=== PATIENT | female | born 1955 | race Caucasian/White ===

== ENCOUNTER → 2020-01-29 12:00 | Outpatient (CLI) | payer MEDICARE, BC, SELFPAY ==
[2015-11-10 11:52] VITALS: BMI 24.7
== END ==
PROVIDERS: PCP Family Medicine; Referring Provider Specialist; Visit Provider Specialist
DX: Z91.038 Other insect allergy status (principal); M19.072 Primary osteoarthritis, left ankle and foot
CPT/HCPCS: 36415; 97035; 97140

== ENCOUNTER 2020-02-15 11:00 | Outpatient (RCR) | payer MEDICARE, BC, SELFPAY ==
--- NOTE | 2020-01-02 13:00 | HP.PTEVAL_ITS ---
Patient's Visit Information PARI CARBAJAL is a 64 year old F referred to Physical Therapy by Dr. Fabiano Pena MD with a diagnosis of OA L ANKLE AND FOOT. Date of Evaluation: 01/02/20 Physical Therapist: Justine Rico PT, Cert MDT - Visit Plan Frequency: 2-3x /Week Duration: 4-6 Weeks Plan: TRY US NEXT VISIT. STM WITH MANUAL ROM AND STRETCHING. LEFT LE ROM, STRETCHING AND STRENGTHENING WITH WRITTEN HEP. MODALITIES NEEDED. - Subjective Work/Leisure: RETIRED. [employer]. Disability: NO. Present symptoms: PAIN ON THE TOP OF THE FOOT AND THE OUTSIDE OF THE ANKLE. NO NUMBNESS OR TINGLING. Present since: OCTOBER 2016 (FX'D CALCANEUS). Pain Scale: WORST 6/10, LEAST 1/10. Currently: 06/08. Commenced as a result of: FX'D LEFT ANKLE WALKING DOG - SLID ON HILL WHEN DOG PULLED HER AND SLID INTO BRICK WALL. Symptoms at onset: PAIN AND SWELLING. Worse: DAILY LIVING, GOING UP AND DOWN STEPS (LAUNDRY IS IN THE BASEMENT), WALKING THE DOGS. Better: SITTING DOWN OR LYING DOWN - BEING OFF OF IT. Disturbed sleep: NO. Previous history/Previous treatment: BONE STIMULATOR IN THE PAST, SOME EXERCISES, ONE CORTISONE SHOT, TRIED PILLS BUT I DON'T LIKE BEING IN [place]. NO SURGERY. STATES SHE WAS STUCK IN A W/C DUE TO BONE BEING SHATTERED LIKE AN EGG SHELL FOR 9 MONTHS AND IT WAS HORRIBLE. STATES SHE DOESN'T KNOW IF IT HEALED RIGHT. STATES SURGERY WAS NOT SUGGESTED INITIALLY BUT ABOUT 18 MONTHS AFTER INJURY IT WAS RECOMMENDED DUE TO HER SUBTALER JOINT BEING MESSED UP. PATIENT IS ADAMIT THAT SHE DOES NOT WANT SURGERY. DR. PENA HAS ORDERED AN ANKLE BRACE AND AWAITING INSURANCE APPROVAL. PATIENT REPORTS SHE DID NOT HAVE A GOOD EXPERIENCE WITH PHYSICAL THERPAY AT [facility] BECAUSE WHEN SHE WANTED TO STOP THEY PUSHED HER TO CONTINUE AND SHE WAS IN MORE PAIN AFTER. PATIENT REPORTS THEY ARE ALSO IN THE PROCESS OF LOOKING AT USING A BONE STIMULATOR AGAIN WITH DIFFERENT CALIBRATION. USE TO COME TO [facility] TO EXERCISE 3 DAYS A WEEK AND WALK THE DOG LONGER AND SHE WANTS TO BE ABLE TO GET BACK TO THESE THINGS AND JUST GET BACK TO A BETTER QUALITY OF LIFE. Gait: DISTANCE LIMITED DUE TO PAIN BUT TRIES TO PUSH THROUGH. STATES HER LEFT ANKLE TENDS TO ROLL AND SHE HASN'T FALLEN BUT SHE DOESN'T FEEL LIKE SHE CAN REALLY TRUST IT. Accidents: BROKE LEFT ANKLE ROLLER SKATING IN [place]. Imaging: RECENT LEFT FOOT AND ANKLE X-RAYS A FEW WEEKS AGO SHOWING ARTHRIITS BUT NO RECENT MRI. PMH: HIGH BLOOD PRESSURE. Recent major surgery: UNREMARKABLE. OTHER; PATIENT STATES SHE IS GRASPING FOR ANYTHING THAT CAN GIVE HER SOME RELIEF OR NORMALICY OTHER THAN SURGERY RIGH NOW. - Objective THIS PATIENT AMBULATES INDEP'LY INTO PT WITHOUT ANY ASSISTIVE DEVICES LIMPING ON HER LLE. SHE HAS INCREASED LEFT ANKLE CIRCOMFERENCE COMPARED TO RIGHT AND DECREASED CALF CIRCUMFERENCE ON LEFT COMPARED TO RIGHT. SHE HAS GOOD IRMA LE STRENGTH WITH MMT'ING EXCEPT LEFT ANKLE AND POOR CORE STRENGTH. LEFT ANKLE ROM AND STRENGTH DEFICITS ALL PLANES. LEFT ANKLE DORSIFLEXION IS +7 DEG DF TO 27 DEG PF AND SHE HAS MAJOR LEFT ANKLE INVERSION AND EVERSION ROM LIMITATION ACTIVELY AND PASSIVELY. SHE IS ABLE TO INDEP'LY SLS ON HER LLE WITH UE ASSIST AND ALSO HEEL RAISE WITH BOTH FEET ON THE FLOOR AND UE ASSIST BUT BOTH OF THESE TESTS ARE PAINFUL. PATIENT REPORTS SHE DOES HEEL RAISES AT HOME DESPITE THE PAIN BECAUSE SHE THINKS SHE NEEDS IT. PATIENT WITH C/O INCREASED PAIN EVEN AFTER AROM TESTING OF LEFT ANKLE TODAY. AQUATIC THERAPY WAS DISCUSSED AND PATIENT REPORTS HER DOCTOR ALSO RECOMMENDED IT. SHE REPORTS SHE HAD A BAD EXPERIENCE WITH WATER AND HAS NOT BEEN BACK IN THE [place]. STATES SHE WILL CONSIDER IT IN THE FUTURE BUT WANTS TO TRY [place]. - Goals Goal 1:: INDEP AND SAFE GAIT ON ALL SURFACES WITH DECREASED PAIN AND DECREASED DEVIATIONS. Goal Time Frame: 4-6 Weeks Goal 2:: IMPROVE ADL, STANDING AND WALKING FUNCITON Goal Time Frame: 4-6 Weeks Goal 3:: PATIENT WILL BE INDEP WITH A HEP FOR CONTINUED IMPROVEMENT ONCE FORMAL PHYSICAL THERAPY CONCLUDES. Goal Time Frame: 4-6 Weeks - Anticipated Interventions Patient/Client Instruction: Educate patient on: Condition, Plan of Care, Risk Factors, Benefits of Fitness Program For the Purpose of:: To improve self management Therapeutic Exercise to Include: Strength training, Balance training, Flexibilty training, Gait and locomotor training, Neuromotor development, In an aquatic setting For the Purpose of:: To decrease pain, To increase ROM, To improve muscle performance and motor function, To increase tolerance to activity/condition/position, To improve ability of physical actions for home/community/work/leisure, To improve gait and locomotor functions Manual Therapy Techniques to Include: Mobilization, Passive ROM, Soft tissue mobilization For the Purpose of:: To decrease pain, To increase ROM, To improve nutrient delivery to tissue Cryotherapy (ice pack, ice massage): Yes Thermo therapy (hot pack): Yes Ultrasound (thermal/non thermal): Yes For the Purpose of:: To decrease pain, To decrease swelling/inflammation, To improve nutrient delivery to tissue Thank you for the opportunity to evaluate your patient. For Medicare and Medicare HMO plans, please review the plan of care and approve it. It will need to be FAXED BACK to us at [phone] for Medicare purposes. For Medicare only, by signing this I certify the plan of care. Please let me know if there are questions or concerns regarding this plan of care. Physician Signature: Date:
--- NOTE | 2020-01-25 14:40 | HP.PTREVAL ---
Dr. Fabiano Bullard MD, It has been my pleasure to treat PARI CARBAJAL over the last 9 visits for OA L ANKLE AND FOOT. Please see the progress note below for an update on the physical therapy plan of care! Subjective: PATIENT REPORTS HER FOOT ISN'T PAINFUL IT WAS BEFORE SHE STARTED PT. SHE STATES SHE FEELS LIKE THE TREATMENTS ARE HELPING A LOT. Objective/Function: THIS PATIENT AMBULATES INDEP'LY INTO PT WITHOUT ANY ASSISTIVE DEVICES LIMPING ON HER LLE. SHE HAS INCREASED LEFT ANKLE CIRCOMFERENCE COMPARED TO RIGHT AND DECREASED CALF CIRCUMFERENCE ON LEFT COMPARED TO RIGHT. SHE HAS GOOD IRMA LE STRENGTH WITH MMT'ING EXCEPT LEFT ANKLE AND POOR CORE STRENGTH. LEFT ANKLE ROM AND STRENGTH DEFICITS ALL PLANES. LEFT ANKLE DORSIFLEXION IS +8 DEG DF TO 38 DEG PF AND SHE HAS MAJOR LEFT ANKLE INVERSION AND EVERSION ROM LIMITATION ACTIVELY AND PASSIVELY. SHE IS ABLE TO INDEP'LY SLS ON HER LLE WITH UE ASSIST AND ALSO HEEL RAISE WITH BOTH FEET ON THE FLOOR AND UE ASSIST BUT BOTH OF THESE TESTS ARE PAINFUL. PATIENT WITHOUT C/O INCREASED PAIN AFTER AROM TESTING OF LEFT ANKLE TODAY. AQUATIC THERAPY WAS DISCUSSED AGAIN AND PATIENT REPORTS HER DOCTOR ALSO RECOMMENDED IT BUT SHE STILL DOES NOT WANT TO DO IT. Plan Plan: CONTINUE E-STIM, US, STM/JT MOBILIZATION WITH MANUAL ROM AND STRETCHING. LEFT LE ROM, STRETCHING AND STRENGTHENING WITH WRITTEN HEP. MODALITIES NEEDED. Goals Goal 1:: INDEP AND SAFE GAIT ON ALL SURFACES WITH DECREASED PAIN AND DECREASED DEVIATIONS. Goal Time Frame: 4-6 Weeks Goal Progress: Progressing Goal 2:: IMPROVE ADL, STANDING AND WALKING FUNCITON Goal Time Frame: 4-6 Weeks Goal Progress: Progressing Goal 3:: PATIENT WILL BE INDEP WITH A HEP FOR CONTINUED IMPROVEMENT ONCE FORMAL PHYSICAL THERAPY CONCLUDES. Goal Time Frame: 4-6 Weeks Goal Progress: Progressing Anticipated Interventions Patient/Client Instruction: Educate patient on: Condition, Plan of Care, Risk Factors, Benefits of Fitness Program For the Purpose of:: To improve self management Therapeutic Exercise to Include: Strength training, Balance training, Flexibilty training, Gait and locomotor training, Neuromotor development, In an aquatic setting For the Purpose of:: To decrease pain, To increase ROM, To improve muscle performance and motor function, To increase tolerance to activity/condition/position, To improve ability of physical actions for home/community/work/leisure, To improve gait and locomotor functions Manual Therapy Techniques to Include: Mobilization, Passive ROM, Soft tissue mobilization For the Purpose of:: To decrease pain, To increase ROM, To improve nutrient delivery to tissue Cryotherapy (ice pack, ice massage): Yes Thermo therapy (hot pack): Yes Ultrasound (thermal/non thermal): Yes For the Purpose of:: To decrease pain, To decrease swelling/inflammation, To improve nutrient delivery to tissue Please do not hesitate to contact me at [phone] by phone or if you have questions or concerns regarding this new plan of care! Sincerely, Justine Rico, PT, Cert MDT
--- NOTE | 2020-02-15 14:43 | HP.PTDCSUM ---
It has been my pleasure to treat PARI CARBAJAL referred by Dr. Fabiano Bullard MD, with the diagnosis of OA L ANKLE AND FOOT for a total of 16 visit(s). Discharge Date: 02/15/20 Please see the following information for a summary of their discharge status. Subjective: ITS A LOT BETTER. PATIENT REPORT SHE IS READY TO STOP PT AND WILL CONTINUE WITH HER HOME EX'S UNTIL SHE SEE'S THE DOCTOR. STATES SHE HAS A LOT GOING ON RIGHT NOW (WORKING ON A HOUSE?) AND WANTS TO MINIMIZE HOW MANY BAM'TS SHE SCHEDULES. LEFT LATERAL FOOT/ANKLE Pain Intensity (Out of 10): 2 % Improvement: 30 Objective/Function: PATIENT WAS SEEN TODAY FOR RE-ASSESSMENT OF PROGRESS TOWARD THE SET PT GOALS AND THE NEED FOR FURTHER PHYSICAL THERAPY VS READINESS FOR DISCHARGE. UPON EXAM TODAY THERE ARE NO SIGNIFICANT OBJECTIVE CHANGES COMPARED TO INTIAL EVAL EXCEPT INCREASED LEFT ANKLE ROM MEASURING +12 DEG DORSIFLEXION TO 42 DEG PLANTAR FLEXION. PATIENT IS ALSO REPORTING LESS PAIN AND SHE IS INDEP WITH A HEP BUT PROGRESSION TO MORE FUNCITONAL EX TOLERATED IS RECOMMENDED. Goal 1:: INDEP AND SAFE GAIT ON ALL SURFACES WITH DECREASED PAIN AND DECREASED DEVIATIONS. Goal Progress: Progressing Goal 2:: IMPROVE ADL, STANDING AND WALKING FUNCITON Goal Progress: Progressing Goal 3:: PATIENT WILL BE INDEP WITH A HEP FOR CONTINUED IMPROVEMENT ONCE FORMAL PHYSICAL THERAPY CONCLUDES. Goal Progress: Progressing Plan: D/C AT PATIENTS REQUEST. THIS PT RECOMMENDS PATIENT CONSIDER AQUATIC THERAPY IN THE FUTURE TO SLOWLY PROGRESS INTO MORE FUNCTIONAL EX IN A REDUCED WEIGHT BEARING ENVIRONMENT IF MORE PT IS ORDERED. If there are questions or concerns regarding this patient's physical therapy, please feel free to call me at [phone]. Thank you for the referral of this patient. Sincerely, Justine Rico, PT, Cert MDT
== END 2020-02-15 19:00 | disposition home or self-care (01) ==
LOC: PT 11:00
PROVIDERS: PCP Family Medicine; Referring Provider Podiatrist Foot & Ankle Surgery; Visit Provider Family Medicine
DX: M19.072 Primary osteoarthritis, left ankle and foot (principal)
CPT/HCPCS: 97035; 97140; 97162; 97164; 97530

== ENCOUNTER 2023-02-01 11:00 | Outpatient (RCR) | payer MEDICARE, BC, SELFPAY ==
--- NOTE | 2022-12-13 10:51 | HP.PTEVAL ---
Patient's Visit Information Visit Information Visit Information: PARI CARBAJAL is a 66 year old F referred to Physical Therapy by Dr. John Mckoy DPM with a diagnosis of L subtalar joint OA. Date of Evaluation: 12/13/22 Physical Therapist: Oswaldo Pritchard DPT, OCS, CSCS Visit Plan Frequency: 3x /Week Duration: 4-6 Weeks Plan: 3x/week for 3-6 weeks for... 1. calcaneal and talar mobs L ankle, PROM L inv/ev, DF and mobs. STM to L ankle and foot. 2. strength adn proprioceptive ex L ankle and foot to I. 3. US L ankle nonthermal if soreness at rest. Pt instructed to wear at least insoles and preferably brace to help diminish pain, compliance may be an issue as she likes being barefoot. Subjective Subjective: L foot and ankle achey and soreness laterally. Got worse for long time now since 6 yrs ago heel fracture. Worse lately for last 6 months for no apparent reason. Has x rays and has OA, no surgical candidate due to OP. MH and massage make it feel better. Has brace but it does not fit in shoes. Trying inserts in shoes now due to brace not fitting in shoes. Has been to [place] and will try new shoes but wants to try insoles first. Feels alot better when supported. Pain is up to 3-5/10 on daily basis intermittently and worse with walking alot or climbing steps to washer/dryer. Feels comfortable at rest. No loss of sleep due to this, Retired. Spends day: taking care of house, takes care of aunt, volunteer at [employer], walks the dogs a couple times per week. Walking dogs is less than it used to be due to pain. Mows the lawn with push mower, moves bag of salt. A little worse after these things. Pain L lateral foot.: Pain Intensity (Out of 10): 1 Pain Intensity Range: 0 and 5 Objective Objective: Slight L antalgia ambulating into PT today. i gait. good balance, SLS is 3 sec L and 3-5 R. Transfers are I bed and chair. Steps reciprocal with pain descending onto L forefoot. Pes planus mild with poor transverse arch support. pt is not wearing inserts or brace today and has on sandals. AROM R ankle 4 DF to 25 inv to 14 inv to 55 pf, L is 1 DF to 8 inv with poor hindfoot movement, 6 eversion and 55 PF. Pain with OP hindfoot inv and eversion and forefoot on L. strength is 4-/5 in B ankles inv/ev, Df with some L sided achiness on inv and DF. reflexes 1/3 patella and achilles Very tight arthrokinemativ movement at L calcaneus(history of fracture) Very tight talar tilt test on L. tender to palpation on L lateral foot and ankle minimally. Balance/Special Test Scores Lower Extremity Functional Score: 59 Goals Goal 1:: Symmetircal ROM L ankle inv/ev /df to R. Goal Time Frame: 4-6 Weeks Goal 2:: Pain in L foot 1/10 at worst adn 80% better. Goal Time Frame: 4-6 Weeks Goal 3:: I management of condition ROM, stretch and strength adn footwear to manage. Goal Time Frame: 4-6 Weeks Goal 4:: LEFS score 55 Goal Time Frame: 4-6 Weeks Goal 5:: Walk dogs without increased pain Goal Time Frame: 4-6 Weeks Rehabilitation Potential Physical Therapy Diagnosis: L foot OA exacerbated by poor foot ROM and support Rehabilitation Potential: Fair Anticipated Interventions Patient/Client Instruction: Educate patient on: Condition and Plan of Care For the Purpose of:: To decrease pain, To decrease swelling/inflammation, To increase ROM, To improve nutrient delivery to tissue, To improve muscle performance and motor function and To increase tolerance to activity/condition/position Therapeutic Exercise to Include: Strength training, Balance training, Flexibilty training, Gait and locomotor training, Passive ROM and Active ROM For the Purpose of:: To decrease pain, To increase ROM, To improve nutrient delivery to tissue, To increase oxygenation perfusion, To improve muscle performance and motor function and To increase tolerance to activity/condition/position Manual Therapy Techniques to Include: Mobilization, Passive ROM and Soft tissue mobilization For the Purpose of:: To decrease pain, To increase ROM and To improve nutrient delivery to tissue Ultrasound (thermal/non thermal): Yes (nonthermal) For the Purpose of:: To decrease swelling/inflammation, To increase oxygenation perfusion and To improve muscle performance and motor function Text: Thank you for the opportunity to evaluate your patient. For Medicare and Medicare HMO plans, please review the plan of care and approve it. It will need to be FAXED BACK to us at [phone] for Medicare purposes. For Medicare only, by signing this I certify the plan of care. Please let me know if there are questions or concerns regarding this plan of care. Physician Signature: Date:
--- NOTE | 2023-02-01 11:25 | HP.PTDCSUM ---
Discharge Summary D/C summary: It has been my pleasure to treat PARI CARBAJAL referred by SEAN FalkM, with the diagnosis of L subtalar joint OA for a total of 17 visit(s). Discharge Date: 02/01/23 Please see the following information for a summary of their discharge status. Subjective Subjective: A lot better. 90% better. I can do most everything I want. Doing a lot of yard work and lifting. Steps are much easier. HEP: calf stretches, using GTB for sideways movements, squats. Has list of exercises to continue. Saw doctor and doing well, released. Pain L lateral foot.: Pain Intensity (Out of 10): 0 L medial food: Pain Intensity (Out of 10): 0 Overall Improvement % Improvement: 90 Objective Objective/Function: Full AROM B ankles and symmetrical , has some pain with Op L ankle into inversion but otherwise no problems. No antalgia in gait today. Picked up on new machines quickly. Goals Goal 1:: Symmetircal ROM L ankle inv/ev /df to R. Goal Progress: Progressing Goal 2:: Pain in L foot 1/10 at worst adn 80% better. Goal Progress: Goal Met Goal 3:: I management of condition ROM, stretch and strength adn footwear to manage. Goal Progress: Goal Met Goal 4:: LEFS score 55 Goal Progress: Goal Met Goal 5:: Walk dogs without increased pain Goal Progress: starting Plan Plan: d/c to HEP and gym exercises, list given today. D/C Information Discharge Comments: Will continue via gym and home exercise program. d/c sentence: If there are questions or concerns regarding this patient's physical therapy, please feel free to call me at [phone]. Thank you for the referral of this patient. Sincerely, Oswaldo Pritchard, DPT, OCS, CSCS Balance/Gait/Functional tests Balance/Special Test Scores Lower Extremity Functional Score: 73 Improvement % Improvement: 90
== END 2023-02-01 12:20 | disposition home or self-care (01) ==
LOC: PT 11:00
PROVIDERS: PCP Family Medicine; Referring Provider Student in an Organized Health Care Education/Training Program; Visit Provider Student in an Organized Health Care Education/Training Program
DX: M19.072 Primary osteoarthritis, left ankle and foot (principal); M25.572 Pain in left ankle and joints of left foot
CPT/HCPCS: 97110; 97113; 97140; 97161; 97164; 97530

== ENCOUNTER 2023-03-26 16:21 | Emergency (ER) | payer MEDICARE, BC, SELFPAY ==
[2023-03-26 16:22] VITALS: BP 176/86; PULSE 102; RESP 16; TEMP 36.6; O2SAT 100; BMI 23.3
--- NOTE | 2023-03-26 16:36 | CT_ITS ---
INDICATION: right orbit pain, swelling EXAMINATION: CT FACIAL BONES - CT Maxillofacial W/ Contrast Injection TECHNIQUE: Helically acquired images were obtained of the facial bones. A radiation dose optimization technique was used for this scan. IV Contrast dosage and agent: 100 cc [id number] COMPARISON: None. FINDINGS: SOFT TISSUES: Right preseptal swelling. No discrete fluid collections. VISUALIZED PARANASAL SINUSES: Clear. VISUALIZED MASTOID AIR CELLS: Clear. FACIAL BONES, MANDIBLE AND TMJs: No displaced facial bone fracture. No lytic or blastic abnormality. VISUALIZED DENTITION: Dental restorations. ORBITAL CONTENTS: Findings suggesting bilateral cataract surgery. The patient does have some right-sided preseptal soft tissue swelling. No definitive post septal inflammatory change definitively identified. Grossly intact optic nerves and extraocular muscles. CT/Sinus/Facial Bone WITH Contras IMPRESSION: Soft tissue swelling. Consider right preseptal cellulitis. CTDI 29.38 DLP 606.22 Electronically Signed: Jorge Fried MD at 18:18 EDT ,
--- NOTE | 2023-03-26 16:39 | EX.ED.VIS.EY ---
HPI History of Present Illness Chief Complaint: Eye Problem Detail of Chief Complaint: Right eye redness and swelling Informant: patient Narrative Narrative: Patient presents to the emergency room with complaint of pain and swelling to the right eye. Patient states that she was started on antibiotics for sinus infection 5 days ago and she thinks it was cephalexin. Patient subsequently developed some redness and drainage from the left eye and saw Dr. Melendrez who started patient on a steroid drop. Patient subsequently developed increased pain redness and swelling to the right eye and yesterday was written for a different drop. Patient denies any trauma. She denies fevers or chills or sweats. She describes of film over her eye and some blurred vision. [facility] Medical History (Updated 03/26/23 @ 18:[address] Anabella Siddiqui DO) Hypertension Home Medications clindamycin HCl 300 mg capsule (Cleocin HCl) 300 mg PO Q6H #40 CAPSULES 03/26/23 [Rx Last Taken Unknown] Allergy/AdvReac Type Severity Reaction Status Date / Time No Known Allergies Allergy Verified 03/26/23 16:26 Surgical History (Updated 03/26/23 @ 17:00 by Ofelia Lua) History of appendectomy History of cholecystectomy Social History Smoking Status: Current every day smoker tobacco type: cigarettes ROS ROS ED Review of Systems ROS Unobtainable: other Constitutional Constitutional ED: Reports lethargy; Denies chills, fever(s), sweats or weight loss Eyes Eyes: Denies blurry vision, change in vision or diplopia ENT ENT ED: Reports other Details: Right eye pain, swelling, erythema ; Denies rhinorrhea or sore throat Cardiovascular Cardiovascular: Denies chest pain, orthopnea or racing heartbeat Respiratory/Chest Respiratory/Chest: Denies cough, dyspnea, dyspnea on exertion, orthopnea or sputum Gastrointestinal Gastrointestinal: Denies abdominal pain, diarrhea, nausea or vomiting Genitourinary Genitourinary ED: Denies dysuria, hematuria or urinary frequency Musculoskeletal Musculoskeletal: Denies arthralgias, back pain, myalgias or neck pain Integumentary Denies abscess, Abrasions or rash Neurologic Neurologic: Denies headache(s) or weakness Psychiatric Psychiatric: Denies anxiety, depression or suicidal thoughts Endocrine Endocrinology: Denies polydipsia, polyphagia or polyuria Hematologic/Lymphatic Hematologic/Lymphatic: Denies easy bleeding, easy bruising or lymphadenopathy Allergic/Immunologic Allergic/Immunologic ED: Denies mouth swelling, tongue swelling or urticaria EXAM Physical Exam Const Vital Signs: 03/26/23 16:22 Temperature 97.8 F Temperature Source Temporal Pulse Rate 102 H Respiratory Rate 16 Blood Pressure 176/86 H Blood Pressure Mean 116 Pulse Ox 100 Oxygen Delivery Method Room Air Positive well nourished and well developed General Appearance ED: well developed and NAD HEENT Reports TM's clear and moist mucous membranes HEENT Narrative: Right eye-patient has diffuse periorbital erythema and soft tissue swelling with tenderness to palpation over the right zygomatic arch. Patient has significant conjunctival edema especially over the left lateral inferior portion of the conjunctiva. Pupils are equal reactive to light bilaterally. Extraocular muscle movement is normal and painless. normocephalic and atraumatic; Negative for trauma or tenderness Tympanic Membrane ED: Yes TM's clear Eyes PERRL and EOMs intact bilaterally General Eye ED: Negative for pale conjunctiva or scleral icterus Neck no lymphadenopathy, supple and no JVD General: Negative for tenderness Chest Wall inspection of chest normal and palpation of chest normal Chest: Negative for tenderness Resp normal respiratory effort and clear to auscultation bilaterally Effort and Inspection: Negative for respiratory distress or pain with movement Auscultation: Negative for rhonchi, wheezes or diminished lung sounds Cardio regular rate, regular rhythm, S1 normal heart sound, S2 normal heart sound and no murmurs Peripheral Pulses: pulses 2+ throughout GI normal to inspection, nondistended, normoactive bowel sounds, soft to palpation, non-tender, non-distended and no masses Back/Spine no CVA tenderness and no thoracic nor lumbar tenderness Extremity normal to inspection General Extremety ED: Negative for edema General Extremity: Negative for edema Neuro oriented x3, CN's II-XII intact bilaterally, no sensory deficits noted and gait normal Sensorium / Orientation: awake, alert, oriented to person, oriented to place and oriented to time Motor Exam: strength 5/5 throughout and strength abnormal Psych mental status grossly normal Skin no rashes or lesions noted and no wounds MDM MDM MDM Narrative Medical decision making narrative: Patient presents with right eye redness and swelling. She has been on steroid drops. Patient had an IV line established. CBC with differential obtained showed an elevated white count. Chemistries unremarkable. CT scan of the facial bones obtained showed soft tissue swelling suspicious for preseptal cellulitis. Case discussed with ophthalmology who recommended I start patient on Polytrim and will write a prescription for clindamycin as well. We will be happy to see her in the office in 2 days. Visual acuity noted in the department was left eye 20/30 as well as right eye 20/200 and both eyes 20/30. Lab Data Attestation: I reviewed the patient's lab results. Discharge Plan Triage Chief Complaint: Eye Problem ED Provider: Anabella Siddiqui Dx/Rx/DC Orders Clinical Impression: Conjunctivitis, Periorbital cellulitis Instructions: ED Conjunctivitis, Nonspecific, ED Periorbital Cellulitis Prescriptions: New clindamycin HCl [Cleocin HCl] 300 mg capsule 300 mg PO Q6H Qty: 40 0RF Primary Care Provider: Malick Jonas Referrals: Lizandro Barnes MD [Med Staff - Active Staff] - 2 Days Guido Garcia MD [Non-Staff] - Disposition Disposition: Home, Self Care
[2023-03-26 17:25] LABS: Absolute Lymphocyte Count 2.32 X10^3/uL (0.83-4.51); Absolute Neutrophil Count 7.6 X10^3/uL (2.0-7.7); Basophil# 0.07 X10^3/uL; Basophil% 0.6 % (0-1); Eosinophil# 0.02 X10^3/uL; Eosinophils% 0.2 % (0-5); Hematocrit 43.1 % (37-47); Hemoglobin 14.2 g/dL (12.0-15.0); Lymphocyte # 2.32 X10^3/ul (0.83-4.51); Lymphocyte % 20.3 % (19-41); Mean Corp Hgb Conc 32.9 g/dL (32-36); Mean Corpuscular Hgb 32.7 pg (27.0-32.0); Mean Corpuscular Volume 99.3 fL (81-99); Mean Platelet Vol. 9.5 fl (6.2-12.0); Monocyte# 1.33 X10^3/uL; Monocyte% 11.6 % (0-10); NRBC Flagged by Analyzer 0 % (0-5); Neutrophil # 7.63 X10^3/uL (2.7-7.7); Neutrophil % 66.8 % (47-70); Platelet Count 325 K/mm3 (150-450); RBC Distribution Width CV 12.6 % (11.6-14.6); RBC Distribution Width SD 46.3 fl (35.1-43.9); Red Blood Count 4.34 M/mm3 (4.2-5.4); White Blood Count 11.4 K/mm3 (4.4-11.0)
[2023-03-26 17:50] LABS: Anion Gap 6 (5-15); BUN 15 mg/dL (7-18); BUN/Creat Ratio 19.5 RATIO (10-20); Calcium,Total 9.4 mg/dL (8.5-10.1); Chloride 105 mmol/L (98-107); Creatinine, Serum 0.77 mg/dL (0.55-1.02); EST Glomerular Filtration Rate 79 mL/min (>60); Est Glom Filt Rate - Afr Amer 96 mL/min (>60); Estimated Creatinine Clearance 45.85 ml/min; Glucose 110 mg/dL (74-106); Potassium 3.9 mmol/L (3.5-5.1); Sodium Level 140 mmol/L (136-145)
[2023-03-26] MEDS: Clindamycin HCl 150 MG Capsule 300 MG PO (19:10)
[2023-03-26] MEDS: Neomycin/Bacitracin/Polymyxin Opth. Ointment 1 APPLIC RIGHT EYE (19:11)
== END 2023-03-26 19:31 | disposition home or self-care (01) ==
PROVIDERS: Emergency Provider Emergency Medicine; Visit Provider Emergency Medicine
DX: H10.9 Unspecified conjunctivitis (principal); L03.213 Periorbital cellulitis; F17.210 Nicotine dependence, cigarettes, uncomplicated
CPT/HCPCS: 70487; 80048; 85025; 99284; Q9967; A4216